=== PATIENT | male | born 1955 | race Caucasian/White ===

== ENCOUNTER 2022-09-09 09:30 | Day surgery (SDC) | payer MEDICARE, BC ==
[~2022-09-09] VITALS: Ht 170.2 cm; Wt 87.1 kg
[2022-09-09] VITALS (10 sets, daily range): BP systolic 101–139; BP diastolic 63–87
[~2022-09-09 09:30] MED LIST: FLUT16SP2 BOTHNARES; IBUP-1986 PO; LINA5TAB4 PO; METF-438 PO; PRAV40TA3 PO; TERA1CAP4 PO
[2022-09-09] MEDS ORDERED: diphenhydrAMINE 25mg capsule PO PRN (09:55)
[2022-09-09] MEDS ORDERED: normal saline 1,000 ML IV SCH (09:55)
[2022-09-09] MEDS ORDERED: glucagon, human recombinant 1mg kit SUBCUT PRN (09:55)
[2022-09-09] MEDS ORDERED: dextrose 50%-water 50ml dispensing syringe IV PRN ×2 (09:55)
[2022-09-09] MEDS ORDERED: MESSAGE TO PHARMACY PO ONE (09:55)
[2022-09-09] MEDS ORDERED: nitroGLYCERIN 0.4mg SUBLingual tab SL PRN ×2 (09:55→14:15)
[2022-09-09] MEDS ORDERED: DEXTROSE 15 GM of carb/4 tabs (each vial/BOTTLE has 4 tablets) PO PRN ×2 (09:55)
[2022-09-09] MEDS ORDERED: LORazepam 0.5 MG tablet PO PRN (09:55)
[2022-09-09] MEDS ORDERED: insulin Lispro (HumaLOG) vial - multi-dose SQ SCH (09:55)
[2022-09-09] MEDS ORDERED: DULA1.5P SQ (10:17)
[2022-09-09] MEDS ORDERED: DUTA0.5C36 PO (10:17)
[2022-09-09] MEDS ORDERED: CHOL500050 PO (10:19)
[2022-09-09] MEDS ORDERED: MULT-1085 PO ×2 (10:19→10:31)
[2022-09-09] MEDS ORDERED: fentaNYL/PF 50MCG/1 ML 2ML syringe ONE (12:48)
[2022-09-09] MEDS ORDERED: iohexol 350 MG/ML 50ML vial IV ONE (12:49)
[2022-09-09] MEDS ORDERED: midazolam 1 mg/ML 2ml injection ONE ×2 (12:49→13:26)
[2022-09-09] MEDS ORDERED: LIDOcaine 1% 30ml preserv. free vial ONE (12:53)
[2022-09-09] MEDS ORDERED: proCHLORperazine 10 MG/2 ml inj ONE (13:05)
[2022-09-09] MEDS ORDERED: HYDROcodone/acetaminophen 5mg/325mg tablet PO PRN (14:15)
[2022-09-09] MEDS ORDERED: ondansetron/PF 4mg/2ml inj IV PRN (14:15)
[2022-09-09] MEDS ORDERED: OXAZEpam 15mg capsule PO PRN (14:15)
[2022-09-09] MEDS ORDERED: proCHLORperazine 10 MG/2 ml inj IV PRN (14:15)
[2022-09-09] MEDS ORDERED: HYDROcodone/acetaminophen 10/325mg tab PO PRN (14:15)
[2022-09-09] MEDS ORDERED: normal saline 1000ml 1,000 ML IV SCH (14:15)
[2022-09-09] MEDS ORDERED: insulin glargine (Lantus) pen - multi-dose SQ SCH (21:00)
[2022-09-10 08:45] LABS: % FREE PSA 23.2 % (.); PSA, FREE 0.79 ng/mL
== END 2022-09-09 18:55 | disposition home or self-care (01) ==
LOC: SSTAY O 09:30
PROVIDERS: ATTEND Internal Medicine Cardiovascular Disease
DX: R94.39 Abnormal result of other cardiovascular function study (principal); I25.10 Atherosclerotic heart disease of native coronary artery without angina pectoris; E11.9 Type 2 diabetes mellitus without complications; I10 Essential (primary) hypertension; F41.9 Anxiety disorder, unspecified; Z79.899 Other long term (current) drug therapy; N40.1 Benign prostatic hyperplasia with lower urinary tract symptoms; Z87.891 Personal history of nicotine dependence
CPT/HCPCS: 36415; 82948; 83036; 84153; 84154; 93005; 93458; 99152; C1760; J0780; J1644; J1815; J2250; J3010; J3490; J7030; Q0163; Q9967; A6258

== ENCOUNTER 2023-05-04 10:56 | Outpatient (CLI) | payer MEDICARE, BC ==
[~2023-05-04 10:56] MED LIST changes: +CHOL500050 PO; +DULA1.5P SQ; +DUTA0.5C36 PO; -FLUT16SP2 BOTHNARES; +MULT-1085 PO
== END 2023-05-04 23:59 | disposition home or self-care (01) ==
LOC: RAD 10:56
PROVIDERS: ATTEND Specialist
DX: M19.012 Primary osteoarthritis, left shoulder (principal); M25.512 Pain in left shoulder
CPT/HCPCS: 73200